=== PATIENT | female | born 1960 | race Caucasian/White ===

== ENCOUNTER 2023-04-05 05:29 | Day surgery (SDC) | payer OTHER ==
[2023-04-05] MEDS ORDERED: Midazolam 1 MG/ML 2 ML SDV ONE (05:52)
[2023-04-05] MEDS ORDERED: Midazolam 1 MG/ML 2 ML SDV IV ONE (05:52)
[2023-04-05] MEDS ORDERED: fentaNYL 100 MCG/2 ML SDV ONE (05:52)
[2023-04-05] MEDS ORDERED: fentaNYL 100 MCG/2 ML SDV IV ONE (05:52)
[2023-04-05] MEDS: Dextrose 5%-0.45% NaCl 1,000 ML IV SCH (06:05)
[2023-04-05] MEDS: fentaNYL 100 MCG/2 ML SDV IV ONE ×2 (06:25→06:26)
[2023-04-05] MEDS: Midazolam 1 MG/ML 2 ML SDV IV ONE ×5 (06:27→06:35)
[2023-04-05 07:15] VITALS: PULSE 52
[2023-04-05 08:12] VITALS: BP 136/66
== END 2023-04-05 08:30 | disposition home or self-care (01) ==
LOC: DL.ENDO 05:29
PROVIDERS: ATTEND Internal Medicine Gastroenterology
DX: Z12.11 Encounter for screening for malignant neoplasm of colon (principal); I10 Essential (primary) hypertension; E78.5 Hyperlipidemia, unspecified; G47.30 Sleep apnea, unspecified; E66.09 Other obesity due to excess calories; Z90.49 Acquired absence of other specified parts of digestive tract; Z98.890 Other specified postprocedural states; Z88.8 Allergy status to other drugs, medicaments and biological substances; Z68.42 Body mass index [BMI] 45.0-49.9, adult
CPT/HCPCS: J2250; J3010; J7042